=== PATIENT | male | born 1955 | race Caucasian/White ===

== ENCOUNTER 2023-10-03 11:50 | Inpatient (IN) ==
[2023-10-03] MEDS: 0.9 % SODIUM CHLORIDE 1,000 ML IV ONE ×2 (12:36→14:18)
[2023-10-03] MEDS: LORazepam 2 MG/ML VIAL IV ONE (12:36)
[2023-10-03] MEDS: methylPREDNISolone SOD SUCC 125 MG/2 ML VIAL IV ONE (12:36)
[2023-10-03] MEDS: IPRATROPIUM/ALBUTEROL 3 ML AMPUL.NEB NEB ONE ×3 (12:41→18:05)
[2023-10-03 13:19] LABS: Basophils # (Auto) 0.01 K/mcL (0.00-0.30); Basophils % (Auto) 0.1 % (0.0-2.0); Eosinophils # (Auto) 0.03 K/mcL (0.00-0.70); Eosinophils % (Auto) 0.4 % (0.0-7.0); Hematocrit 47.6 % (40.1-51.0); Hemoglobin 16.4 g/dL (13.7-17.5); Lymphocytes # (Auto) 0.65 K/mcL (1.50-4.80); Lymphocytes % (Auto) 8.5 % (15.5-49.0); Mean Cell Volume 95.6 fL (80.0-100.0); Mean Corpuscular HGB Conc 34.5 g/dL (31.0-36.0); Mean Platelet Volume 11.7 fL (8.8-12.5); Monocytes # (Auto) 1.32 K/mcL (0.10-0.90); Monocytes % (Auto) 17.3 % (1.0-12.0); Neutrophils % (Auto) 73.3 % (38.0-78.0); Platelet Count 215 K/mcL (140-440); RBC 4.98 M/mcL (4.63-6.08); Red Cell Distribution Width 11.2 % (11.5-14.5); WBC 7.7 K/mcL (4.5-11.0)
[2023-10-03 13:21] LABS: ALT/SGPT 39 U/L (<40); AST/SGOT 66 U/L (<40); Albumin 4.2 gm/dL (3.2-5.2); Albumin/Globulin Ratio 1.7 (1.0-2.3); Alkaline Phosphatase 105 U/L (39-117); Bilirubin,Total 0.4 mg/dL (0.1-1.0); Blood Urea Nitrogen 10 mg/dL (8-23); Calcium 9.4 mg/dL (8.6-10.4); Carbon Dioxide 27 mmol/L (22-30); Chloride 79 mmol/L (96-108); Globulin 2.5 gm/dL (2.2-3.7); Glomerular Filtration Rate 110; Glucose 90 mg/dL (70-105)
[2023-10-03 16:06] LABS: ABG Methemoglobin 0.4 % (0.4-1.5); Total Hemoglobin 16.2 gm/Dl (13.5-16.5); VBG Base Excess -5 (-2-3); VBG HCO3 23.7 mmol/L (24.0-28.0); VBG PCO2 58.4 mmHg (41.0-51.0); VBG PH 7.23 U (7.32-7.42); VBG PO2 45.7 mmHg (25.0-40.0); VBG Total CO2 25.5 mmol/L (25.0-29.0)
[2023-10-03] MEDS ORDERED: ONDANSETRON 4 MG/2 ML VIAL IV PRN (17:07)
[2023-10-03] MEDS ORDERED: LACTULOSE 20 GM/30 ML ORAL.SOL PO PRN (17:07)
[2023-10-03] MEDS ORDERED: SENNOSIDES 1 TABLET PO PRN (17:07)
[2023-10-03] MEDS ORDERED: ACETAMINOPHEN 325 MG TABLET PO PRN (17:07)
[2023-10-03] MEDS ORDERED: HYDROmorphone 0.5 MG/0.5 ML SYRINGE IV PRN (17:18)
[2023-10-03] MEDS: BUDESONIDE 0.5 MG/2 ML AMPUL.NEB ONE (18:05)
[2023-10-03] MEDS: IPRATROPIUM/ALBUTEROL 3 ML AMPUL.NEB NEB SCH (18:05)
[2023-10-03] MEDS: BUDESONIDE 0.5 MG/2 ML AMPUL.NEB NEB SCH (18:05)
[2023-10-03] MEDS: 0.9 % SODIUM CHLORIDE 1,000 ML IV SCH (18:12)
[2023-10-03] MEDS: hydrOXYzine 25 MG TABLET PO PRN (18:18)
[2023-10-03] MEDS: LORazepam 2 MG/ML VIAL IV PRN (18:18)
[2023-10-03] MEDS ORDERED: ALBUTEROL SULFATE 2.5 MG/3 ML NEBULIZER NEB PRN (18:32)
[2023-10-03 19:05] LABS: ALT/SGPT 39 U/L (<40); AST/SGOT 71 U/L (<40); Albumin 3.9 gm/dL (3.2-5.2); Albumin/Globulin Ratio 1.8 (1.0-2.3); Alkaline Phosphatase 95 U/L (39-117); Bilirubin,Total 0.3 mg/dL (0.1-1.0); Blood Urea Nitrogen 10 mg/dL (8-23); Calcium 8.5 mg/dL (8.6-10.4); Carbon Dioxide 29 mmol/L (22-30); Chloride 84 mmol/L (96-108); Globulin 2.2 gm/dL (2.2-3.7); Glomerular Filtration Rate 110; Glucose 107 mg/dL (70-105)
[2023-10-03] MEDS: LOSARTAN 50 MG TABLET PO SCH (19:41)
[2023-10-03] MEDS: NICOTINE 21 MG PATCH TOPICAL SCH (19:43)
[2023-10-03] MEDS: NICOTINE 14 MG PATCH TOPICAL SCH (19:43)
[2023-10-03] MEDS: cefTRIAXone 2 GM VIAL ONE (19:43)
[2023-10-03] MEDS: cefTRIAXone 2 GM in DEXTROSE 5% IN WATER 50 ML IV SCH (19:43)
[2023-10-03] MEDS: DOCUSATE SODIUM 100 MG CAPSULE PO SCH (20:56)
[2023-10-03] MEDS: ATORVASTATIN 40 MG TABLET PO SCH (20:56)
[2023-10-03] MEDS: HEPARIN 5,000 UNIT/ML VIAL SQ SCH (20:57)
[2023-10-03] MEDS: guaiFENesin 600 MG TAB.SR.12H PO SCH (20:57)
[2023-10-03] MEDS: BENZONATATE 100 MG CAPSULE PO SCH (20:57)
[2023-10-03] MEDS: methylPREDNISolone SOD SUCC 40 MG/ML VIAL IV SCH (21:11)
[2023-10-03] MEDS: OSELTAMIVIR PHOSPHATE 75 MG CAPSULE PO SCH (21:11)
[2023-10-03] MEDS: 0.9 % SODIUM CHLORIDE 10 ML SYRINGE IV SCH (21:11)
[2023-10-04 06:22] LABS: Basophils # (Auto) 0 K/mcL (0.00-0.30); Basophils % (Auto) 0 % (0.0-2.0); Eosinophils # (Auto) 0 K/mcL (0.00-0.70); Eosinophils % (Auto) 0 % (0.0-7.0); Hematocrit 47.1 % (40.1-51.0); Hemoglobin 15.5 g/dL (13.7-17.5); Lymphocytes # (Auto) 0.49 K/mcL (1.50-4.80); Lymphocytes % (Auto) 7.9 % (15.5-49.0); Mean Cell Volume 99.4 fL (80.0-100.0); Mean Corpuscular HGB Conc 32.9 g/dL (31.0-36.0); Mean Platelet Volume 11.3 fL (8.8-12.5); Monocytes # (Auto) 0.68 K/mcL (0.10-0.90); Monocytes % (Auto) 10.9 % (1.0-12.0); Neutrophils % (Auto) 80.9 % (38.0-78.0); Platelet Count 183 K/mcL (140-440); RBC 4.74 M/mcL (4.63-6.08); Red Cell Distribution Width 11.3 % (11.5-14.5); WBC 6.2 K/mcL (4.5-11.0)
[2023-10-04 06:25] LABS: ALT/SGPT 34 U/L (<40); AST/SGOT 54 U/L (<40); Albumin 3.9 gm/dL (3.2-5.2); Albumin/Globulin Ratio 1.8 (1.0-2.3); Alkaline Phosphatase 91 U/L (39-117); Bilirubin,Total 0.3 mg/dL (0.1-1.0); Blood Urea Nitrogen 9 mg/dL (8-23); Carbon Dioxide 28 mmol/L (22-30); Chloride 88 mmol/L (96-108); Globulin 2.2 gm/dL (2.2-3.7); Glomerular Filtration Rate 110; Glucose 111 mg/dL (70-105)
[2023-10-04] MEDS: THIAMINE 100 MG TABLET PO SCH (08:11)
[2023-10-04] MEDS: FOLIC ACID/VITAMIN B COMP W-C 1 TAB TABLET PO SCH (09:05)
[2023-10-05 06:21] LABS: Hematocrit 47.2 % (40.1-51.0); Hemoglobin 15.4 g/dL (13.7-17.5); Mean Cell Volume 100.9 fL (80.0-100.0); Mean Corpuscular HGB Conc 32.6 g/dL (31.0-36.0); Mean Platelet Volume 11.1 fL (8.8-12.5); Platelet Count 173 K/mcL (140-440); RBC 4.68 M/mcL (4.63-6.08); Red Cell Distribution Width 11.3 % (11.5-14.5); WBC 7.4 K/mcL (4.5-11.0)
[2023-10-05 06:57] LABS: ALT/SGPT 32 U/L (<40); AST/SGOT 37 U/L (<40); Albumin 3.6 gm/dL (3.2-5.2); Albumin/Globulin Ratio 1.9 (1.0-2.3); Alkaline Phosphatase 75 U/L (39-117); Bilirubin,Total 0.2 mg/dL (0.1-1.0); Blood Urea Nitrogen 10 mg/dL (8-23); Calcium 9.2 mg/dL (8.6-10.4); Carbon Dioxide 37 mmol/L (22-30); Chloride 89 mmol/L (96-108); Globulin 1.9 gm/dL (2.2-3.7); Glomerular Filtration Rate 102; Glucose 131 mg/dL (70-105)
[2023-10-05 09:33] LABS: Lymphocytes % 2 % (15-49); Monocytes % (Manual) 18 % (1-12); Platelet Estimate NORMAL (Normal); RBC Morphology NORMAL (Normal); Reactive Lymphocytes 2 % (0-2); Segmented Neutrophils % 78 % (38-78)
[2023-10-05] MEDS: SODIUM CHLORIDE 1 GM TABLET PO SCH (10:11)
[2023-10-05] MEDS: LORazepam 0.5 MG TABLET PO PRN (10:11)
[2023-10-06 05:44] LABS: Hematocrit 50.3 % (40.1-51.0); Hemoglobin 16.3 g/dL (13.7-17.5); Mean Cell Volume 101.6 fL (80.0-100.0); Mean Corpuscular HGB Conc 32.4 g/dL (31.0-36.0); Mean Platelet Volume 11.6 fL (8.8-12.5); Platelet Count 190 K/mcL (140-440); RBC 4.95 M/mcL (4.63-6.08); Red Cell Distribution Width 11.5 % (11.5-14.5)
[2023-10-06 06:45] LABS: Lymphocytes % 12 % (15-49); Monocytes % (Manual) 10 % (1-12); Platelet Estimate NORMAL (Normal); RBC Morphology NORMAL (Normal); Reactive Lymphocytes 6 % (0-2); Segmented Neutrophils % 72 % (38-78)
[2023-10-06 07:17] LABS: ALT/SGPT 36 U/L (<40); AST/SGOT 32 U/L (<40); Albumin 3.6 gm/dL (3.2-5.2); Albumin/Globulin Ratio 1.9 (1.0-2.3); Alkaline Phosphatase 70 U/L (39-117); Bilirubin,Total 0.3 mg/dL (0.1-1.0); Blood Urea Nitrogen 13 mg/dL (8-23); Calcium 9.3 mg/dL (8.6-10.4); Carbon Dioxide 37 mmol/L (22-30); Chloride 91 mmol/L (96-108); Globulin 1.9 gm/dL (2.2-3.7); Glomerular Filtration Rate 102; Glucose 119 mg/dL (70-105)
[2023-10-06] MEDS: HYDROcodone/APAP 5/325MG TABLET PO PRN (11:17)
[2023-10-06] MEDS: SODIUM ZIRCONIUM CYCLOSILICATE 10 GM PACKET PO SCH (15:25)
[2023-10-06] MEDS: cefTRIAXone 2 GM VIAL ONE (15:56)
[2023-10-06] MEDS: methylPREDNISolone SOD SUCC 40 MG/ML VIAL IV SCH (20:28)
[2023-10-07 06:49] LABS: Hematocrit 48.3 % (40.1-51.0); Hemoglobin 15.5 g/dL (13.7-17.5); Mean Cell Volume 102.3 fL (80.0-100.0); Mean Corpuscular HGB Conc 32.1 g/dL (31.0-36.0); Platelet Count 197 K/mcL (140-440); RBC 4.72 M/mcL (4.63-6.08); Red Cell Distribution Width 11.3 % (11.5-14.5); WBC 8.6 K/mcL (4.5-11.0)
[2023-10-07 06:51] LABS: ALT/SGPT 38 U/L (<40); AST/SGOT 29 U/L (<40); Albumin 3.5 gm/dL (3.2-5.2); Albumin/Globulin Ratio 1.8 (1.0-2.3); Alkaline Phosphatase 66 U/L (39-117); Bilirubin,Total 0.3 mg/dL (0.1-1.0); Blood Urea Nitrogen 13 mg/dL (8-23); Calcium 9.1 mg/dL (8.6-10.4); Carbon Dioxide 33 mmol/L (22-30); Chloride 92 mmol/L (96-108); Globulin 1.9 gm/dL (2.2-3.7); Glomerular Filtration Rate 110; Glucose 96 mg/dL (70-105)
[2023-10-07 08:04] LABS: Lymphocytes % 17 % (15-49); Monocytes % (Manual) 4 % (1-12); Platelet Estimate NORMAL (Normal); RBC Morphology NORMAL (Normal); Reactive Lymphocytes 4 % (0-2); Segmented Neutrophils % 75 % (38-78)
== END 2023-10-07 16:50 | disposition home or self-care (01) | DRG 152 ==
LOC: ED 11:50 → ICU 17:40 → MEDSUR 10-05 14:45
PROVIDERS: ADMIT Emergency Medicine; ATTEND Internal Medicine